=== PATIENT | female | born 1980 | race Caucasian/White ===

== ENCOUNTER → 2017-05-19 | Day surgery (SDC) | payer OTHER ==
[~2017-05-19] VITALS: Ht 154.9 cm; Wt 73.0 kg
[~2017-05-19] MED LIST: 0.9% Sodium Chloride 1,000 ML IV PRN; ALBU8.5H2 INHALATION; Atropine 0.4 mg/mL Inj IVPUSH PRN; BENZ100C8 PO; ESTR1TAB24 PO; FLUO40CA12 PO; GUAI120L57 PO; Lactated Ringer's 1,000 ML IV SCH; MetoCLOpramide 5 mg/mL 2 mL Inj IVPUSH PRN; OXYC1TAB24 PO; Ondansetron 2 mg/mL 2 mL Inj IVPUSH PRN; Propofol 10 mg/mL 20 mL Inj ONE; Sodium Chloride LOK Flush 10 mL Syringe IV PRN; fentaNYL-PF 50 mCg/mL 2 mL Inj IVPUSH PRN
[2017-05-19 12:16] VITALS: BP 121/78; PULSE 68; RESP 16; O2SAT 98
--- NOTE | 2017-05-19 14:39 | PCM.HPANE ---
Patient Data Surgeon Admitting Provider: Attending Provider:Michael Perez MD Primary Care Physician:Terra Townsend DO Other Provider: Reason for Visit Abdominal Pain Of Unknown Cause Ht/WT & BMI Height (Feet): 5 Height (Inches): 1 Weight (Kilograms): 73 Body Mass Index 30.00 Allergies Coded Allergies: Penicillins (Verified Allergy, Severe, trouble breathing, 05/19/17) Sulfa (Sulfonamide Antibiotics) (Verified Allergy, Severe, trouble breathing, 05/19/17) aspirin (Verified Allergy, Intermediate, hives, 05/19/17) Past Anesthesia History Anesthesia History: Positive for:: Anesthesia Reactions (N/V), Denies:: Fam Anesthesia Reaction, Fam Malignant Hypertherm, Malignant Hyperthermia Diabetes History Hx Diabetes?: No MRSA MRSA: No Medications Hypertension Medication: No Home Meds Incl Beta Aixa: No Reported Medications oxyCODONE-Acetaminophen 5-325 mg 1 Each Tablet1 Tab PO Q6H PRN For Pain Ref 0 05/15/17 Estradiol 1 Mg Tablet1 Mg PO DAILY Ref 0 05/15/17 Albuterol HFA (Proair HFA)8.5 Gm Hfa.aer.ad2 Puffs INHALATION Q4H #1 INHALER 05/15/17 Discontinued Reported Medications Fluoxetine (Prozac)40 Mg [id number] Mg PO DAILY Ref 0 05/15/17 Guaifenesin/Codeine Phosphate (Codeine-Guaifen 10-100 mg/5 ml)120 Ml [id number] Ml PO 05/15/17 Benzonatate 100 Mg [id number] Mg PO TID 05/15/17 History History of ENT Problems?: No HEENT History: Denies:: Abnormal Airway Difficult Intubation Denture Type: None Teeth Condition: Within Normal Limits Hx of Heart Problems?: No Cardiovascular History: Denies:: AICD Pacemaker Valvular Heart Disease Hx of Respiratory Problem?: Yes Respiratory History: Positive for:: Asthma Hx Neurologic Problems?: No Neurological History: Denies:: CVA Hx of GI Problems?: Yes (rectal blood) Hx of Problems?: No HX of Peritoneal Dialysis: No Female Hx: Denies:: Currently (FULL HYSTO) Hx Musculoskeletal Problems?: No Hx of Psycho/Social Problems?: No Psycho Social History: Denies:: Anxiety Hx Depression Hx Surgeries?: Yes (FULL HYSTO, WTE, TONSILS, ) Hx Any Other Health Problems?: No Hx Diabetes: No Hx Alcohol Use: Yes (OCCASIONALLY) Stop/Bang Treated for Sleep Apnea?: No Do You Have a CPAP Machine?: No S-Snoring: Do You Snore Loudly: No T-Tired: feel tired, fatigued: No O-Obsered: Observed not breath: No P-Blood Pressure: treated: No B- Body Mass Index > 35 kg/m2: No A- Age over 50: No N- Neck Large Circumference: No G- Gender Male: No REYNALDO Total Score: 0 REYNALDO Risk Assessment: Low Risk, <3 Yes Risk Assessment Category Category 1A: Patient has history of documented sleep apnea, and HAS NOT received any narcotic, sedative or anesthesia administration during this stay. Category 1B: Patient has history of documented sleep apnea, and HAS received any narcotic , sedative or anesthesia administration during this stay Category 2: Patient has SUSPECTED Obstructive Sleep Apnea, and HAS received any narcotic , sedative or anesthesia administration during this stay. Category 3: Patient has SUSPECTED Obstructive Sleep Apnea and HAS NOT received narcotic, sedative or anesthesia administration during this stay. Category 4: Outpatient in Procedural Areas with known sleep apnea or who screen positive for High Risk via the STOP/BANG questionnaire. Exam Exam Vital Signs Vital Signs Date Time Temp Pulse Resp B/P Pulse Ox O2 Delivery O2 Flow Rate FiO2 05/19/17 12:16 68 16 121/78 98 Room Air General Appearance: Moderate Distress HEENT/AIRWAY: Neck Movement Lungs: Normal Air Movement Heart: Exam Unremarkable, Regular Rate/Rhythm Plan Impression Patient chart reviewed, patient interviewed and anesthestic plan with risks, benefits, and alternatives discussed, and informed consent obtained. NPO per Anesth. Guidelines: Yes ASA Physical Status: ASA2 Mod Systemic Disease Anesthetic Plan: MAC Other Unable to consent due to mid procedure, history reviewed Chuck Haynes MD May 19, 2017 14:20
--- NOTE | 2017-05-19 14:42 | PCM.ENDEGD ---
EGD Date of Service: May 19, 2017 Physician Michael Perez MD Pre Procedure Diagnosis: Abdominal pain and bloating Post Procedure Dx & Findings: Gastritis. Procedure Esophagogastroduodenoscopy PROCEDURE IN DETAIL: After proper sedation, Olympus video endoscope was inserted into patient's mouth and esophagus was successfully intubated. Scope introduced esophagus. Esophagus showed normal shiny whitish mucosa consistent with squamous cell component. Z line was intact at 40 cm from the incisors. Scope further advanced to the stomach. Isolated redness edema noted in the antrum and the body. Biopsies obtained.. Cardia fundus body antrum pylorus were all visualized. Retroflexion was done. Stomach was easily inflated and deflatable using air. Scope further advanced to the distal duodenum. Duodenum revealed normal villous structures with normal appearing folds without any mass ulcer erosion. 5-6 biopsies obtained for celiac disease. Impression Gastritis Recommendation Follow up in GI clinic Presedation Assessment Risks and Benefits Informed consent was obtained from the patient after all risks and benefits including but not limited to drug reaction, infection, pain, bleeding, perforation, as well as alternatives were discussed. Patient monitoring Continuous pulse oximetry, cardiac monitoring, blood pressure monitoring, IV access, and oxygen at 2L per nasal cannula. Periprocedural Fentanyl: Fentanyl 150mcg Incrementally Midazolam: Midazolam 9mg Incrementally Complications There were no periprocedural complications identified. Post Procedure Plan Post Procedure Recommendations 1. Restrict activities today. 2. Resume normal activities in the morning. 3. Resume medications. 4. GERD behavioral modification: - Avoid fatty, acidic, spicy, large meals - Do not lie down after meals - Do not eat or drink anything for at least 2 1/2 hours before going to bed at night - Discontinue tobacco and alcohol - Decrease or avoid caffeine - Avoid chocolate and mints - Decrease weight - Avoid aspirin and non steroidal anti-inflammatory agents (NSAID) such as Aleve, Advil, Mobic, Naproxen, Ibuprofen, etc 5. Add proton pump inhibitor. Take 30 minutes before 1st meal of the day. 6. Patient informed of normal post procedure side effects as bloating, drowsiness, blood streaking in the stool 7. If gastric biopsy reveal H.pylori, continue with appropriate treatment 8. If small bowel biopsy reveals celiac, continue with appropriate treatment 9. Please don't hesitate to call me with any questions Michael Perez MD May 19, 2017 14:42
--- NOTE | 2017-05-19 14:44 | PCM.ENDCOL ---
Colonoscopy Date of Service: May 19, 2017 Physician Michael Perez MD Pre Procedure Diagnosis: Blood in the stools Post Procedure Dx & Findings: Hemorrhoids Procedure Colonoscopy PROCEDURE IN DETAIL: Sedation given by anesthesiology Prep adequate Withdrawal time 7 minutes After unremarkable rectal examination the Olympus video colonoscope was inserted patient's anal canal and was advanced to cecum. Landmarks were identified including the ileocecal valve and appendiceal orifice. Scope was withdrawn systematically. Visualized colonic mucosa showed healthy shiny mucosa with normal healthy-appearing vasculature. In the rectum retroflexion was done which showed hemorrhoids. Anal canal was inspected carefully on the way out and hemorrhoids noted. Impression Hemorrhoids Recommendation Give hemorrhoid instructions. Presedation Assessment Risks and Benefits Informed consent was obtained from the patient after all risks and benefits including but not limited to drug reaction, infection, pain, bleeding, perforation, as well as alternatives were discussed. Patient monitoring Continuous pulse oximetry, cardiac monitoring, blood pressure monitoring, IV access, and oxygen at 2L per nasal cannula. Complications There were no periprocedural complications identified. Post Procedure Plan Post Procedure Recommendations 1. Restrict activities today. 2. Resume normal activities in the morning. 3. Resume medications. 4. Patient informed of normal post procedure side effects as bloating, drowsiness, blood streaking in the stool. 5. average risk CRCS. If colon polyps come back as: -Hyperplastic- can repeat colonoscopy in 10 years -Tubular adenoma- repeat colonoscopy in 5 years -Tubulovillous/villous adenoma- repeat colonoscopy in 3 years -If any dysplasia- return to clinic as soon as possible 6. Please don't hesitate to call me with any questions. Michael Perez MD May 19, 2017 14:44
[2017-05-19 14:46] VITALS: BP 114/59; PULSE 83; RESP 12; O2SAT 100
[2017-05-19 15:02] VITALS: BP 126/81; PULSE 57; RESP 12; O2SAT 98
[2017-05-19 15:04] VITALS: BP 117/73; PULSE 64; RESP 12; O2SAT 99
--- NOTE | 2017-05-19 16:58 | PCM.ANEP1 ---
Post Anesthesia PACU Phase 1 Assessment Date of Service: May 19, 2017 Vital Signs Vital Signs Date Time Temp Pulse Resp B/P Pulse Ox O2 Delivery O2 Flow Rate FiO2 05/19/17 15:04 64 12 117/73 99 Room Air 05/19/17 15:02 57 12 126/81 98 Room Air 05/19/17 14:46 83 12 114/59 100 Room Air 05/19/17 12:16 68 16 121/78 98 Room Air Anesthetic Administered: MAC Level of Alertness: Awake, talking FAM's with Equal Strength: Yes Pain: No Nausea or Vomiting: No CV Function & Hydration Stable: Yes Airway Device: Oxygen Delivery: Room Air Lungs: Normal Air Movement Dermatome Level: Full Sensation PACU Phase 2 Assessment Complications: No Follow up Care: N/A Patient Instructions Provided: N/A Chuck Haynes MD May 19, 2017 16:58
--- NOTE | 2017-05-22 14:49 | PATH ---
SURGICAL PATHOLOGY Attending Physician:Michael Perez M.D. CASE STATUS: Signed Out PATIENT NAME: MADELYN HWANG PID: [id number] : 1980 DATE COLLECTED:05/19/2017 00:00 SPECIMEN: 1: Duodenum, Biopsy 2: Gastric, Biopsy CLINICAL HISTORY: 1). DUODENAL BIOPSY 2). GASTRIC BIOPSY - RULE OUT H PYLORI FINAL DIAGNOSIS: 1. Duodenum, Biopsy: Small bowel mucosa with no diagnostic abnormality. Negative for active inflammation, features of sprue, dysplasia or malignancy. 2. Stomach, Biopsy: Gastric body mucosa with mild chronic gastritis. Helicobacter organisms not identified. Negative for intestinal metaplasia, dysplasia or malignancy. ICD10: R10.9 GROSS DESCRIPTION: The specimen is received in two formalin filled containers labeled with the patient's name. 1). The specimen is labeled "duodenal" and consists of 3 portions of tissue which aggregate to 0.2 x 0.2 x 0.2 CM. The specimen is entirely submitted in cassette 1A. 2). The specimen is labeled "gastric" and consists of a 0.3 x 0.3 x 0.3 CM portion of tissue which is entirely submitted in cassette 2A. 05/20/2017DC ICD-9 CODES: CPT CODES: 1: 91080 2: 30152 Electronically Signed Out Osito Dangelo MD, Ph.D. [facility] [address], [place] [address] Technical component performed at [facility], [facility] [address], [place], [address]
== END | disposition home or self-care (01) ==
LOC: END 07:47
PROVIDERS: ATTEND Internal Medicine
DX: K92.1 Melena (principal); K64.8 Other hemorrhoids; K29.50 Unspecified chronic gastritis without bleeding
CPT/HCPCS: 43239; 45378; J2250; J2704; J3010; J7030